=== PATIENT | male | born 1985 | race African-American/Black ===

== ENCOUNTER 2019-11-02 10:04 | Emergency (ER) | payer MEDICARE, MEDICAID ==
[~2019-11-02] VITALS: Ht 185.4 cm; Wt 80.0 kg
[2019-11-02 10:11] VITALS: BP 118/64
--- NOTE | 2019-11-02 10:18 | NUR ---
BIB EMS FOR N/V. PT IS NOT BEING COOPERATIVE, NOT COMMUNICATED W STAFF. PT WAS TOLD TO UNDRESS AND GET IN GOWN AND STATES "I AM NOT IN [place]". PT WILL NOT VERBALIZE ANSWERS WHEN ASKED INFORMATION EVEN THOUGH HE IS TALKING CLEAR AND NOT IN DISTRESS, MD AWARE. PT AMBULATED TO ROOM W EMS W OUT DIFFICULTY.
[2019-11-02] MEDS ORDERED: ONDANSETRON ODT 4 MG PO ONE (10:30)
[2019-11-02] MEDS ORDERED: ONDANSETRON ODT 4 MG ONE (10:32)
--- NOTE | 2019-11-02 11:23 | NUR ---
PT IS REFUSING TO GET DRESSED FOR DC AND KEEPS NAPPING. MD CLEARED PT FOR DC, PT DEMANDING FOOD, PT WAS GIVEN CRACKERS. SECURITY CALLED TO ASSIST PT TO DC
== END 2019-11-02 11:41 | disposition home or self-care (01) ==
LOC: ED 10:32
DX: R11.0 Nausea (principal); J00 Acute nasopharyngitis [common cold]; Z59.0 Homelessness
CPT/HCPCS: 82962; 99283; Q0162

== ENCOUNTER 2019-11-08 20:45 | Emergency (ER) | payer MEDICAID, MEDICARE ==
[~2019-11-08] VITALS: Ht 188 cm; Wt 76.0 kg
--- NOTE | 2019-11-08 21:07 | NUR ---
PT HERE COMPLAINING OF N/V/D, COUGH AND SORE THROAT. PT ALSO SAYS HE HAS HAD FEVERS X 2 YEARS. VSS. PT AFEBRILE HERE AND HAS NOT HAD MEDICATION AT HOME. PT TO SEE ERP. CALL LIGHT [facility]
[2019-11-08] MEDS ORDERED: SODIUM CHLORIDE FLUSH 10ML SYR IVF ONE (21:30)
--- NOTE | 2019-11-08 21:45 | NUR ---
IV STARTED, LABS DRAWN AND SENT. NAD NOTED AT THIS TIME.
[2019-11-08 22:03] LABS: ALANINE AMINOTRANSFERASE 23 U/L (12-78); ALBUMIN 3.7 g/dL (3.4-5.0); ANION GAP 6 mmol/L (5-15); CALCIUM 8.8 mg/dL (8.5-10.1); CHLORIDE 110 mmol/L (98-107); CREATININE 0.81 mg/dL (0.7-1.3)
[2019-11-08 22:05] LABS: MEAN CORPUSCULAR HEMOGLOBIN 29.1 pg (27.5-34.5); MEAN CORPUSCULAR HGB CONC 33.3 g/dL (33.2-36.2); MEAN CORPUSCULAR VOLUME 87.4 fL (81-97); MEAN PLATELET VOLUME 8.7 fL (7.4-10.4); PLATELET COUNT 239 x10^3/uL (130-400); RED BLOOD COUNT 5.07 x10^6/uL (4.38-5.82); RED CELL DISTRIBUTION WIDTH 14.8 % (9.4-14.8)
[2019-11-08 22:06] LABS: ALKALINE PHOSPHATASE 93 U/L (45-117); BILIRUBIN,TOTAL 0.5 mg/dL (0.2-1.0); TOTAL PROTEIN 7.7 g/dL (6.4-8.2)
[2019-11-08] MEDS ORDERED: ONDANSETRON 2MG/ML, 2ML ONE (22:20)
--- NOTE | 2019-11-08 22:26 | NUR ---
PT MEDICATED FOR NAUSEA. VSS. PT WAITING FOR CT. PT REQUESTED JUICE. PT INFOMED THAT HE NEEDS TO WAIT FOR RESULTS BEFORE HE CAN HAVE PO.
[2019-11-08] MEDS ORDERED: ONDANSETRON 2MG/ML, 2ML IVPush ONE (22:30)
[2019-11-08 22:47] LABS: BASOPHILS # (AUTO) 0.01 x10^3/uL (0-0.1); BASOPHILS % (AUTO) 0 % (0-1); EOSINOPHILS # (AUTO) 0.74 x10^3/uL (0-0.4); EOSINOPHILS % (AUTO) 9 % (1-7); LYMPHOCYTES # (AUTO) 0.97 x10^3/uL (1-3.4); LYMPHOCYTES % (AUTO) 11 % (22-44); MD SCAN; MONOCYTES # (AUTO) 0.59 x10^3/uL (0.2-0.8); MONOCYTES % (AUTO) 7 % (2-9); NEUTROPHILS # (AUTO) 6.35 x10^3/uL (1.8-6.8); NEUTROPHILS % (AUTO) 73 % (42-75)
[2019-11-08] MEDS ORDERED: OMNIPAQUE 350 MG/ML, 100ML BOTTLE ONE (23:17)
[2019-11-09 00:25] VITALS: BP 126/73
--- NOTE | 2019-11-09 00:53 | NUR ---
piv removed. pt given discharge papers. pt given juice and said he will get dressed. when rn entered pt went back to sleep and makes no move to get dressed
--- NOTE | 2019-11-09 00:58 | NUR ---
security called after pt has been told repeatedly to get dressed
== END 2019-11-09 01:20 | disposition home or self-care (01) ==
LOC: ED 22:56
DX: A08.4 Viral intestinal infection, unspecified (principal); R10.9 Unspecified abdominal pain; R11.2 Nausea with vomiting, unspecified; R19.7 Diarrhea, unspecified; R06.02 Shortness of breath
CPT/HCPCS: 36415; 74177; 80053; 85025; 93005; 96374; 99285; J2405; Q9967

== ENCOUNTER 2020-10-19 20:12 | Emergency (ER) | payer MEDICARE, MEDICAID ==
[~2020-10-19] VITALS: Ht 188 cm; Wt 83.3 kg
--- NOTE | 2020-10-19 20:30 | NUR ---
Pt reports he is having pain and swelling in groin area. Denies difficulty or changes in urination habits.
--- NOTE | 2020-10-19 20:57 | NUR ---
Lab at bedside.
[2020-10-19] MEDS ORDERED: KETOROLAC 30 MG/1 ML IM ONE (21:00)
[2020-10-19 21:09] LABS: BASOPHILS % (AUTO) 2 % (0-1); EOSINOPHILS % (AUTO) 19 % (1-7); LYMPHOCYTES % (AUTO) 19 % (22-44); MEAN CORPUSCULAR HEMOGLOBIN 28.5 pg (27.5-34.5); MEAN CORPUSCULAR HGB CONC 35.6 g/dL (33.2-36.2); MONOCYTES % (AUTO) 9 % (2-9); NEUTROPHILS % (AUTO) 52 % (42-75); PLATELET COUNT 304 x10^3/uL (130-400); RED BLOOD COUNT 4.93 x10^6/uL (4.38-5.82); RED CELL DISTRIBUTION WIDTH 14.4 % (9.4-14.8)
[2020-10-19 21:17] LABS: ALBUMIN 3.5 g/dL (3.4-5.0); ANION GAP 7 mmol/L (5-15); CALCIUM 8.4 mg/dL (8.5-10.1); CHLORIDE 108 mmol/L (98-107)
[2020-10-19 21:18] LABS: CREATININE 0.97 mg/dL (0.7-1.3)
--- NOTE | 2020-10-19 21:25 | NUR ---
Educated pt on UA sample collection, reports he doesn't have to go right now.
[2020-10-19] MEDS ORDERED: KETOROLAC 30 MG/1 ML ONE (21:29)
[2020-10-19 21:34] LABS: MD SCAN
--- NOTE | 2020-10-19 21:50 | NUR ---
Liliana yeung in [facility] - 10/19/20 at 2150 by KAYLA Pt ambulating to bathroom, steady equal gait.
[2020-10-19 22:16] VITALS: BP 125/78
--- NOTE | 2020-10-19 22:16 | NUR ---
UA collected and sent to lab.
[2020-10-19 22:24] LABS: MICROSCOPIC NOT IND
--- NOTE | 2020-10-19 22:40 | NUR ---
TASK RN: DC EDUCATION PROVIDED, PT DEMONSTRATES UNDERSTANDING. PT UP TO DRESS SELF.
--- NOTE | 2020-10-19 22:51 | NUR ---
TASK RN: PT AMBULATED STEADILY TO DC. DRESSED APPROPRIATELY FOR WEATHER. PROVIDED TAXI [employer]OUCHER FOR SAFE TRANSPORT TO LONG TERM
== END 2020-10-19 22:53 | disposition home or self-care (01) ==
LOC: ED 22:45
DX: R10.31 Right lower quadrant pain (principal); Z59.0 Homelessness
CPT/HCPCS: 36415; 76870; 80048; 81003; 82040; 85025; 96372; 99284; J1885

== ENCOUNTER 2020-11-01 08:56 | Emergency (ER) | payer MEDICARE, MEDICAID ==
[~2020-11-01] VITALS: Ht 188 cm; Wt 77.5 kg
--- NOTE | 2020-11-01 08:56 | NUR ---
INITIAL PT CONTACT. PT PRESENTS TO ED VIA EMS C/O GROIN PAIN X3 YEARS. PT DENIES ANY OTHER COMPLAINTS. CSM OF RIGHT LEG INTACT. PT ABLE TO TRANSFER BY SELF FROM [facility] TO [facility]. PT PROVIDED WARM BLANKET. NO ADDITIONAL NEEDS AT THIS TIME. CALL LIGHT AND BELONGINGS WITHIN REACH. AWITING ERP
--- NOTE | 2020-11-01 09:13 | NUR ---
ERP AT BEDSIDE
[2020-11-01 10:08] LABS: MICROSCOPIC NOT IND
[2020-11-01 10:56] VITALS: BP 122/77
--- NOTE | 2020-11-01 11:19 | NUR ---
Patient given discharge instructions and they have confirmed that they understand the instructions. Patient ambulatory with steady gait.
== END 2020-11-01 11:21 | disposition home or self-care (01) ==
LOC: ED 09:43
DX: N50.811 Right testicular pain (principal); R94.31 Abnormal electrocardiogram [ECG] [EKG]
CPT/HCPCS: 81003; 93005; 99284

== ENCOUNTER 2020-11-12 21:59 | Emergency (ER) | payer MEDICARE, MEDICAID ==
[~2020-11-12] VITALS: Ht 188 cm; Wt 79.8 kg
--- NOTE | 2020-11-12 22:31 | NUR ---
Pt states having lower abd pain down into his groin that has been hurting for 2 years. Pt states pain had gotten worse over the last day.
[2020-11-12 22:55] LABS: MICROSCOPIC AUTO
[2020-11-13] MEDS ORDERED: ACETAMINOPHEN 500 MG TABLET PO ONE (01:30)
[2020-11-13] MEDS ORDERED: ACETAMINOPHEN 500 MG TABLET ONE (01:32)
[2020-11-13 01:41] VITALS: BP 128/90
--- NOTE | 2020-11-13 01:41 | NUR ---
Patient/Caregiver given discharge instructions and they have confirmed that they understand the instructions. Patient ambulatory with steady gait.
== END 2020-11-13 01:58 | disposition home or self-care (01) ==
LOC: ED 11-13 01:45
DX: N50.811 Right testicular pain (principal)
CPT/HCPCS: 76870; 81001; 99284

== ENCOUNTER 2020-11-16 23:19 | Emergency (ER) | payer MEDICARE, MEDICAID ==
[~2020-11-16] VITALS: Ht 188 cm; Wt 95.0 kg
[2020-11-17] MEDS ORDERED: IBUPROFEN 600 MG TABLET PO ONE
[2020-11-17] MEDS ORDERED: IBUPROFEN 600 MG TABLET ONE (00:06)
[2020-11-17] MEDS ORDERED: PLEASE ENTER HEIGHT AND WEIGHT MC SCH (00:30)
[2020-11-17 01:09] VITALS: BP 128/74
== END 2020-11-17 01:12 | disposition home or self-care (01) ==
LOC: ED 11-17 01:00
DX: R07.89 Other chest pain (principal); R00.0 Tachycardia, unspecified
CPT/HCPCS: 71045; 93005; 99283